=== PATIENT | male | born 1990 | race African-American/Black ===

== ENCOUNTER 2020-02-01 20:01 | Emergency (ER) | payer MEDICAID ==
[~2020-02-01] VITALS: Ht 170.2 cm; Wt 58.1 kg
[2020-02-01 20:10] VITALS: Ht 170.2 cm; Wt 58.1 kg
[2020-02-01 22:38] VITALS: BP 139/93
== END 2020-02-01 22:38 | disposition home or self-care (01) ==
LOC: ED 20:01
DX: S61.412A Laceration without foreign body of left hand, initial encounter (principal); S61.411A Laceration without foreign body of right hand, initial encounter; W26.8XXA Contact with other sharp object(s), not elsewhere classified, initial encounter; Y93.89 Activity, other specified; Y92.89 Other specified places as the place of occurrence of the external cause; Y99.8 Other external cause status
CPT/HCPCS: A4570; Q0092